=== PATIENT | female | born 1995 | race Caucasian/White ===

== ENCOUNTER → 2021-10-01 | Outpatient (CLI) | payer OTHER ==
[~2021-10-01] MED LIST: CARAFATE 1 GM TA1 GM GT; COLACE 100MG C100 MG PO; IBUPROFEN600 MG PO; LODINE CAP 300300 MG PO; NORCO 5-325 TA1 EACH PO; PROTONIX40 MG PO; ZOFRAN ODT 4 MG4 MG GT
== END ==
LOC: KOH-I 10:28
DX: G43.011 Migraine without aura, intractable, with status migrainosus (principal)
CPT/HCPCS: 70551

== ENCOUNTER → 2021-10-14 | Outpatient (CLI) | payer OTHER | LOC: KOH-I 13:42 | DX: R10.2 Pelvic and perineal pain (principal); D25.2 Subserosal leiomyoma of uterus | CPT/HCPCS: 76856 ==